=== PATIENT | male | born 1960 | race Caucasian/White ===

== ENCOUNTER 2023-10-05 05:59 | Day surgery (SDC) | payer OTHER, BC ==
[2023-09-23 10:56] VITALS: BMI 27.8
[2023-10-05] MEDS ORDERED: ERYTHROMYCIN 0.5% OPHTHALMIC OINTMENT 3.5 GM TUBE ONE (07:13)
[2023-10-05] MEDS ORDERED: BUPIVACAINE HCL/PF 0.5% (5MG/ML) 10 ML VIAL ONE (07:13)
[2023-10-05] MEDS ORDERED: LIDOCAINE 1%/EPI 1:100000 (20 ML MULTI DOSE VIAL) ONE (07:13)
[2023-10-05] MEDS ORDERED: POVIDONE-IODINE 5% OPHTHALMIC PREP 30 ML SOLUTION ONE (07:13)
[2023-10-05] MEDS ORDERED: ceFAZolin SODIUM 1 GM VIAL ONE ×2 (07:13→07:18)
[2023-10-05] MEDS ORDERED: TETRACAINE 0.5% OPHTH SOLN 2 ML BOTTLE ONE (07:13)
[2023-10-05] MEDS ORDERED: PROPOFOL 40 ML ONE (07:18)
[2023-10-05] MEDS ORDERED: MIDAZOLAM HCL 2 MG/2 ML SINGLE DOSE VIAL ONE (07:18)
[2023-10-05] MEDS ORDERED: ONDANSETRON 4 MG/2 ML VIAL ONE (08:39)
[2023-10-05] MEDS ORDERED: LACTATED RINGERS SOLUTION 1,000 ML IV SCH (08:45)
[2023-10-05] MEDS ORDERED: ONDANSETRON 4 MG/2 ML VIAL IVPUSH PRN (08:45)
[2023-10-05] MEDS: oxyCODONE HCL 5 MG TABLET ONE (09:30)
[2023-10-05 09:59] VITALS: RESP 20; TEMP 97.7
[2023-10-05 10:14] VITALS: BP 130/85; PULSE 62
== END 2023-10-05 10:07 | disposition home or self-care (01) ==
LOC: FASU 05:59
PROVIDERS: ATTEND Ophthalmology
PROC: 08N Eye, Release (ICD-10-PCS; principal; 2023-10-05 08:10)
DX: H02.401 Unspecified ptosis of right eyelid (principal)
CPT/HCPCS: 82962; 88304-TC; 94760